=== PATIENT | female | born 1990 | race Caucasian/White ===

== ENCOUNTER → 2016-11-01 | Outpatient (CLI) | payer BC ==
[2016-11-01 10:41] LABS: CH 29.5; CHCM 34.1; HCT 34.7 % (34.0-46.0); HDW 2.45; HGB 11.6 gm/dL (11.4-16.0); MCH 29.1 pg (25.0-35.0); MCHC 33.5 g/dL (31.0-37.0); Mean Platelet Volume 8.2; RBC 3.99 m/uL (3.80-5.40); RDW 13.1 % (11.5-15.5); WBC 8.9 k/uL (3.8-10.6)
[2016-11-01 10:58] LABS: Glucose 76 mg/dL (74-99); Non-African American GFR(MDRD) >60 (>60 ml/min/1.73 sqM)
[2016-11-01 11:29] LABS: Hepatitis B Surface Ag Index 0.06
[2016-11-02 05:34] LABS: Toxoplasma Antibody (IgG) <3.0 IU/mL (<7.2)
[2016-11-02 07:22] LABS: HIV-1/HIV-2 Ab Screen NONREAC (NON REAC)
== END | disposition home or self-care (01) ==
LOC: LABWHC1 10:18
PROVIDERS: ATTEND Obstetrics & Gynecology
DX: Z34.91 Encounter for supervision of normal pregnancy, unspecified, first trimester (principal)
CPT/HCPCS: 36415; 82565; 82947; 85027; 86762; 86777; 86778; 86780; 86850; 86900; 86901; 87340; 87389

== ENCOUNTER → 2017-02-09 | Outpatient (CLI) | payer BC ==
[2017-02-09 08:26] LABS: CH 29.6; CHCM 33.4; HCT 33.9 % (34.0-46.0); HDW 2.71; HGB 11.4 gm/dL (11.4-16.0); MCHC 33.7 g/dL (31.0-37.0); MCV 89.2 fL (80.0-100.0); RBC 3.81 m/uL (3.80-5.40); RDW 13.2 % (11.5-15.5); WBC 15.1 k/uL (3.8-10.6)
== END | disposition home or self-care (01) ==
LOC: LABWHC1 07:04
PROVIDERS: ATTEND Obstetrics & Gynecology
DX: Z34.82 Encounter for supervision of other normal pregnancy, second trimester (principal); Z3A.00 Weeks of gestation of pregnancy not specified
CPT/HCPCS: 36415; 82950; 85027

== ENCOUNTER 2017-05-05 11:15 | Outpatient (CLI) | payer BC ==
[2017-05-05 11:45] VITALS: BP 137/87; PULSE 103; RESP 16; TEMP 98.1
--- NOTE | 2017-05-06 06:06 | P.MSEPDOC ---
Presenting Problems - Arrival Data Date of Arrival on Unit: 05/05/17 Time of Arrival on Unit: 11:10 Mode of Transport: Ambulatory - Complaint OB-Reason for Admission/Chief Complaint: Possible Onset of Labor Medical History - Information : 5 Para: 2 Term: 2 : 0 Abortions: Spontaneous or Elective: 2 Number of Living Children: 2 - Gestational Age Gestational Age by SAKSHI (wks/days): 38 Weeks and 0 Days Review of Systems - Review of Systems Constitutional: No problems Breast: No problems ENT: No problems Cardiovascular: No problems Respiratory: No problems Gastrointestinal: No problems Genitourinary: No problems Musculoskeletal: No problems Neurological: No problems Skin: No problems Vital Signs - Temperature Temperature: 98.1 F Temperature Source: Tympanic - Pulse Right Radial Pulse Rate: 103 Pulse Assessment Method: Automatic Cuff - Respirations Respiratory Rate: 16 Oxygen Delivery Method: Room Air - Blood Pressure Right Arm Blood Pressure: 137/87 Blood Pressure Mean: 103 Blood Pressure Source: Automatic Cuff Medical Screen Scoring (Pre) - Cervical Exam Dilation: 1-3 cm = 1 Membranes: Intact - Uterine Contractions Frequency: > 5 minutes apart = 1 Duration: N/A Intensity: N/A - Maternal Vital Signs Maternal Temperature: N/A Maternal Blood Pressure: N/A Signs of Preeclampsia: N/A Maternal Respirations: N/A - Pain Assessment Pain Scale Used: Numeric (1 - 10) Pain Intensity: 4 Pain Description: Cramping Pain Frequency: Intermittent Pain Behavior: Vocalization Pain Aggravating Factors: Contractions - Total Score Total Score (Pre): 2 - Level of Risk Level of Risk: Low (0-5) Physician Notification (Pre) - Physician Notified Physician Notified Date: 05/05/17 Physician Notified Time: 12:05 Physician/Practitioner Notifed:: katt Spoke With: katt New Order Received: Yes - Notification Comment Comment: discharge home with instructions. bp retake = 124/82. 92 pulse Disposition - Disposition OB Disposition: Discharge to home Discharge Date: 05/05/17 Discharge Time: 12:10 I agree with the RN Medical Screening Exam: Yes Risk & Benefit of care provided described in d/c instruction: Yes Diagnosis: FALSE LABOR AT OR AFTER 37 COMPLETED WEEKS OF GESTATION
== END 2017-05-05 12:15 | disposition home or self-care (01) ==
LOC: FBPOP 11:15
PROVIDERS: ATTEND Obstetrics & Gynecology
DX: O47.1 False labor at or after 37 completed weeks of gestation (principal); Z3A.38 38 weeks gestation of pregnancy
CPT/HCPCS: 59025; 99213

== ENCOUNTER 2017-05-16 05:49 | Inpatient (IN) | payer BC ==
[2017-05-16] MEDS ORDERED: OXYTOCIN 20 UNITS/1000 ML NS 1,000 ML IV SCH ×2 (06:00→18:14)
[2017-05-16] MEDS ORDERED: CARBOPROST TROMETHAMINE 250 MCG/ML 1 ML AMP IM PRN (06:00)
[2017-05-16] MEDS ORDERED: OXYTOCIN 10 UNIT/ML 1 ML VIAL IM PRN (06:00)
[2017-05-16] MEDS ORDERED: METHYLERGONOVINE 0.2 MG/ML 1 ML AMP IM PRN (06:00)
[2017-05-16] MEDS ORDERED: TERBUTALINE 1 MG/ML VIAL SQ PRN (06:00)
[2017-05-16] MEDS ORDERED: LIDOCAINE 1% (PF) 10 MG/ML (30 ML SDV) SQ PRN (06:00)
[2017-05-16 06:20] LABS: Basophils % (A) 0 %; CH 29.2; CHCM 32.9; Eosinophils # (A) 0.1 k/uL (0-0.7); Eosinophils % (A) 1 %; HCT 38.1 % (34.0-46.0); HGB 12.3 gm/dL (11.4-16.0); Luc # (Auto) 0.15; Luc % (Auto) 1; Lymphocytes # (A) 1.6 k/uL (1.0-4.8); Lymphocytes % (A) 14 %; MCH 28.8 pg (25.0-35.0); MCHC 32.3 g/dL (31.0-37.0); MCV 89.2 fL (80.0-100.0); Mean Platelet Volume 9.6; Monocytes # (A) 0.6 k/uL (0-1.0); Monocytes % (A) 5 %; Neutrophils # (A) 8.8 k/uL (1.3-7.7); Neutrophils % (A) 78 %; RBC 4.27 m/uL (3.80-5.40); RDW 14.5 % (11.5-15.5); WBC 11.3 k/uL (3.8-10.6); WBC (Perox) 11.91
[2017-05-16] MEDS: LACTATED RINGERS 1,000 ML IV SCH ×2 (06:21→09:54)
--- NOTE | 2017-05-16 06:30 | P.HPOB ---
History of Present Illness H&P Date: 05/16/17 Chief Complaint: Requested induction of labor. This patient is a pleasant 26-year-old 5 para 2 female estimated date of confinement 05/19/2017 estimated gestational age 39-4/7 weeks gestation who presents to labor and delivery for requested induction of labor. Patient's care has been uncomplicated. Patient is uncomfortable and requests induction at this time. Review of Systems Constitutional: Denies chills, Denies fever Cardiovascular: Denies chest pain, Denies shortness of breath Respiratory: Denies cough Gastrointestinal: Reports heartburn Genitourinary: Reports Menstruation: Reports amenorrhea Past Medical History Past Medical History: No Reported History Additional Past Medical History / Comment(s): previous ectopic History of Any Multi-Drug Resistant Organisms: None Reported Past Surgical History: Adenoidectomy, Tonsillectomy Past Anesthesia/Blood Transfusion Reactions: No Reported Reaction Smoking Status: Never smoker Past Alcohol Use History: None Reported Past Drug Use History: None Reported Medications and Allergies Home Medications Medication Instructions Recorded Confirmed Type Pnv,Calcium 72/Iron/Folic Acid 1 tab PO HS 02/17/16 05/16/17 History [ Plus Tablet] Allergies Allergy/AdvReac Type Severity Reaction Status Date / Time No Known Allergies Allergy Verified 05/16/17 05:59 Exam - Vital Signs Vital signs: Intake and Output 05/15/17 05/15/17 05/16/17 14:59 22:59 06:59 Other: # Voids 1 Weight 69.853 kg Patient Weight 05/16/17 06:59 Weight 69.853 kg - OBG Physical Exam Abdomen: bowel sounds normal, no diffuse tenderness, no bruit present, no guarding noted, no hepatomegaly, no splenomegaly, no mass Vagina: normal moisture, no discharge Cervix: Cervix is 2 cm 50% effaced -2 station. Cervix: no lesion, no discharge Uterus: enlarged (Fundal height is 38 cm.) Results blood work shows she is O positive, rubella immune, RPR nonreactive, HIV is nonreactive, hepatitis B is negative, Glucola was normal, ultrasounds have been normal. Assessment and Plan Assessment: This is a pleasant 26-year-old 5 para 2 female 39-4/7 weeks gestation who presents to labor and delivery for requested elective induction of labor. Patient's had a few elevated blood pressures on admission however is never had any blood pressure problems during the or previously therefore I am going to get some preeclampsia blood work. Has induction of labor and anticipate vaginal delivery. (1) Third trimester Current Visit: Yes Status: Acute Code(s): Z34.93 - ENCNTR FOR SUPRVSN OF NORMAL PREG, UNSP, THIRD TRIMESTER SNOMED Code(s): 71150721 (2) Elective induction of labor planned Current Visit: Yes Status: Acute Code(s): MIJ1820 - SNOMED Code(s): 072243452 (3) Gestational hypertension Current Visit: Yes Status: Acute Code(s): O13.9 - GESTATIONAL HTN W/O SIGNIFICANT PROTEINURIA, UNSP TRIMESTER SNOMED Code(s): 16304657
[2017-05-16 07:06] LABS: ALT 29 U/L (9-52); AST 18 U/L (14-36); Blood Urea Nitrogen 9 mg/dL (7-17); LDH 385 U/L (313-618); Non-African American GFR(MDRD) >60 (>60 ml/min/1.73 sqM); Uric Acid 4.1 mg/dL (3.7-7.4)
[2017-05-16] MEDS ORDERED: fentaNYL (PF) 50 MCG/ML 5 ML AMP ONE (09:34)
[2017-05-16] MEDS ORDERED: SODIUM CHLORIDE 0.9% 100 ML BAG ONE (09:34)
[2017-05-16] MEDS ORDERED: BUPIVACAINE (PF) 0.25% 30 ML VIAL ONE (09:34)
[2017-05-16] MEDS ORDERED: BUPIVACAINE (PF) 0.25% 25 ML, fentaNYL (PF) 200 MCG in SODIUM CHLORIDE 0.9% 71 ML EPIDURAL ONE (09:53)
[2017-05-16 10:15] VITALS: BMI 25.7
--- NOTE | 2017-05-16 18:10 | P.PROBDLV ---
Vaginal Delivery Note - . Vaginal Delivery Note: Normal vaginal delivery viable female Apgars 9 and 9 delivery time is 1744 hrs. Please see dictated H&P for intimate details of this patient's admission. Brief summary is a pleasant 26-year-old 5 para 2 female 39-4/7 weeks gestation admitted to labor and delivery for requested induction of labor. Patient have some elevated blood pressures on admission however preeclampsia evaluation was negative. Patient artificial rupture membranes at 2 cm dilated for clear fluid labor is induced with Pitocin per protocol. Patient progresses does get an epidural for pain control. Patient's labor continues to progress she pushes the head to the perineum. The posterior perineum is supported and we have controlled delivery of 's head over the intact perineum. With gentle downward traction we then have deliver the anterior and posterior shoulder and rest this infant's body. This is a vigorous viable female infant Apgars are 9 and 9 delivery time is 1744 hrs. After delivery of the infant the umbilical cord is doubly clamped and cut appears to be trivascular. Inspection of perineum shows no lacerations and no repairs required. All counts are correct 3. There are no complications.
[2017-05-16] MEDS ORDERED: diphenhydrAMINE 25 MG CAP PO PRN (18:14)
[2017-05-16] MEDS ORDERED: WITCH HAZEL 1 EACH MED..PAD TOPICAL PRN (18:14)
[2017-05-16] MEDS ORDERED: Acetaminophen-Codeine 300-30mg TAB PO PRN (18:14)
[2017-05-16] MEDS ORDERED: ZOLPIDEM 5 MG TAB PO PRN (18:14)
[2017-05-16] MEDS ORDERED: BISACODYL 10 MG SUPP RECTAL PRN (18:14)
[2017-05-16] MEDS ORDERED: HYDROCORTISONE 2.5% RECTAL CREAM 30 GM TUBE RECTAL PRN (18:14)
[2017-05-16] MEDS ORDERED: SIMETHICONE 80 MG CHEWABLE PO PRN (18:14)
[2017-05-16] MEDS ORDERED: ACETAMINOPHEN TAB 325 MG TAB PO PRN (18:14)
[2017-05-16] MEDS ORDERED: LANOLIN CREAM 5 GM TUBE TOPICAL PRN (18:14)
[2017-05-16] MEDS ORDERED: BENZOCAINE/MENTHOL SPRAY 1 GM/SPRAY AEROSOL TOPICAL PRN (18:14)
[2017-05-16] MEDS ORDERED: diphenhydrAMINE 50 MG/ML 1 ML VIAL IVP PRN (18:14)
[2017-05-16] MEDS: SENNOSIDES-DOCUSATE SODIUM 1 EACH TAB PO SCH (20:07)
[2017-05-16] MEDS ORDERED: METHYLERGONOVINE 0.2 MG/ML 1 ML AMP IM ONE (20:31)
[2017-05-16 21:18] LABS: Glucose,Whole Blood 106 mg/dL (75-99)
[2017-05-16 21:23] LABS: Basophils % (A) 0 %; CH 28.7; CHCM 31.8; Eosinophils % (A) 0 %; HCT 25.8 % (34.0-46.0); HDW 2.42; HGB 8.3 gm/dL (11.4-16.0); Luc # (Auto) 0.11; Luc % (Auto) 1; Lymphocytes % (A) 6 %; MCH 29.3 pg (25.0-35.0); MCHC 32.2 g/dL (31.0-37.0); MCV 90.9 fL (80.0-100.0); Mean Platelet Volume 10.8; Monocytes # (A) 0.7 k/uL (0-1.0); Monocytes % (A) 4 %; Neutrophils # (A) 14.6 k/uL (1.3-7.7); Neutrophils % (A) 88 %; RBC 2.84 m/uL (3.80-5.40); RDW 14.5 % (11.5-15.5); WBC 16.5 k/uL (3.8-10.6); WBC (Perox) 17.37
[2017-05-16 21:38] LABS: ALT 26 U/L (9-52); AST 19 U/L (14-36); Alkaline Phosphatase 83 U/L (38-126); Anion Gap 4 mmol/L; Blood Urea Nitrogen 8 mg/dL (7-17); Calcium 7.8 mg/dL (8.4-10.2); Carbon Dioxide 22 mmol/L (22-30); Chloride 106 mmol/L (98-107); Glucose 125 mg/dL (74-99); Magnesium 1.1 mg/dL (1.6-2.3); Non-African American GFR(MDRD) >60 (>60 ml/min/1.73 sqM); Potassium 3.8 mmol/L (3.5-5.1); Sodium 132 mmol/L (137-145); Total Bilirubin 0.3 mg/dL (0.2-1.3); Total Protein 4.1 g/dL (6.3-8.2)
--- NOTE | 2017-05-16 22:10 | P.PN ---
Progress Note - Text Progress Note Date: 05/16/17 This is a progress note on Ms. Valeri Rausch. Was called to see Valeri in regards to bleeding with hypotension and tachycardia. She is status post vaginal delivery earlier this evening began having odd feeling and was noted to have fundus above the umbilicus. Passing large clots. Patient had many clots expressed but continued to have bleeding. The team was called and so was Dr. Lynn. Dr. Lynn did come in and I was called as well. Examination showed the uterus to be now firm I did express approximately tennis ball-sized dark clot. Estimated blood loss is close to 4000 mL based on weighing the pads. I immediately gave the patient some Methergine and uterine massage bleeding subsided. Stat CBC shows a hemoglobin be 8.3 and is more realistically in the 6 range. Patient's vital signs now stabilized and pulses just about 110 blood pressure 120/70. Plan is to continue oral Methergine and I 'm going to transfuse her 2 units of blood. Tinea close observation. Bleeding appears to be completely from uterine atony.
[2017-05-16] MEDS: IBUPROFEN 600 MG TAB PO PRN (22:52)
[2017-05-17] MEDS: Acetaminophen-Codeine 300-30mg TAB PO PRN ×3 (02:49→20:22)
[2017-05-17] MEDS ORDERED: METHYLERGONOVINE 0.2 MG TAB PO SCH (04:00)
[2017-05-17 05:36] LABS: Basophils % (A) 0 %; CH 28.7; CHCM 32.8; Eosinophils % (A) 0 %; HCT 32.1 % (34.0-46.0); HDW 2.62; HGB 10.7 gm/dL (11.4-16.0); Luc # (Auto) 0.15; Luc % (Auto) 1; Lymphocytes # (A) 1.3 k/uL (1.0-4.8); Lymphocytes % (A) 7 %; MCH 29.4 pg (25.0-35.0); MCHC 33.4 g/dL (31.0-37.0); Mean Platelet Volume 9.9; Monocytes # (A) 0.8 k/uL (0-1.0); Monocytes % (A) 4 %; Neutrophils # (A) 16.5 k/uL (1.3-7.7); Neutrophils % (A) 88 %; RBC 3.64 m/uL (3.80-5.40); RDW 14.4 % (11.5-15.5); WBC 18.9 k/uL (3.8-10.6); WBC (Perox) 20.32
--- NOTE | 2017-05-17 06:00 | P.PNOBGVD ---
Subjective - Subjective Patient reports: Reports appetite normal, Reports voiding normally, Reports pain well controlled, Reports ambulating normally : doing well Objective - Latest Vital Signs Latest vital signs: Vital Signs Temp Pulse Pulse Resp BP BP Pulse Ox 05/17/17 04:30 140/91 05/17/17 04:16 140/95 05/17/17 04:15 97.9 F 81 16 138/94 05/17/17 02:00 98.5 F 86 16 122/65 05/17/17 01:28 98.5 F 98 16 133/71 98 05/17/17 00:00 98.7 F 97 18 124/78 100 05/16/17 23:46 98.6 F 103 H 18 125/75 97 05/16/17 22:39 97.7 F 103 H 18 118/76 98 05/16/17 22:27 97.6 F 97 18 113/75 103 H 05/16/17 22:19 97.7 F 107 H 18 122/77 100 05/16/17 22:08 97.8 F 99 18 120/80 100 05/16/17 22:01 100 18 100 05/16/17 22:00 97.3 F L 84 18 120/80 100 05/16/17 21:59 97.3 F L 84 18 129/80 100 05/16/17 21:50 97.3 F L 90 18 125/75 100 05/16/17 21:47 97.3 F L 89 18 125/75 100 05/16/17 21:40 97 F L 122 H 18 117/63 05/16/17 21:32 85/54 05/16/17 21:28 69/40 05/16/17 21:23 78/47 05/16/17 21:01 113 H 18 115/70 100 05/16/17 20:55 97 05/16/17 20:35 105 H 18 103/62 100 05/16/17 20:19 97.6 F 79 18 100/57 97 05/16/17 19:31 98 F 101 H 18 110/80 96 05/16/17 19:15 100 20 100 05/16/17 19:00 117 H 16 143/92 05/16/17 18:45 115 H 16 136/83 05/16/17 18:30 92 16 154/82 05/16/17 18:15 103 H 16 148/88 05/16/17 18:00 104 H 16 138/68 05/16/17 07:00 97.3 F L 87 16 146/91 Intake and Output 05/16/17 05/16/17 05/17/17 14:59 22:59 06:59 Intake Total 4627 0 Output Total 300 880 Balance -300 3747 0 Intake: IV 2613 Lactated Ringers 1,000 ml 2253 @ 125 mls/hr IV .Q8H [facility] Rx#:[id number] Oxytocin 20 Units/1000 ml 360 Ns 1,000 ml @ 1 MILLIUNIT/MIN 3 mls/hr IV .Q24H [facility] Rx#:[id number] Intake, IV Titration 1204 Amount Oxytocin 20 Units/1000 ml 1204 Ns 1,000 ml @ Per Protocol IV .Q0M [facility] Rx#: [id number] Blood Product 810 0 Rc As-3 Unit 310 [id number] Rc As-3 Unit 0 0 [id number] Output: Urine 300 880 Straight 440 Other: # Voids 1 Weight 70.307 kg Patient Weight 05/17/17 06:59 Weight 70.307 kg - Exam Lungs: bilateral: normal Chest: Normal S1, Normal S2 Extremities: Present: normal Abdomen: Present: normal appearance, soft Uterus: Present: normal, firm - Labs Labs: Abnormal Lab Results - Last 24 Hours (Table) 05/16/17 05/16/17 05/16/17 Range/Units 06:00 06:00 20:58 WBC 11.3 H (3.8-10.6) k/uL RBC (3.80-5.40) m/uL Hgb (11.4-16.0) gm/dL Hct (34.0-46.0) % Neutrophils # 8.8 H (1.3-7.7) k/uL Sodium (137-145) mmol/L Glucose (74-99) mg/dL POC Glucose (mg/dL) 106 H (75-99) mg/dL Calcium (8.4-10.2) mg/dL Magnesium (1.6-2.3) mg/dL Total Protein (6.3-8.2) g/dL Albumin (3.5-5.0) g/dL Crossmatch See Detail 11/05/16/17 05/17/17 Range/Units 21:05 21:12 05:20 WBC 16.5 H 18.9 H (3.8-10.6) k/uL RBC 2.84 L 3.64 L (3.80-5.40) m/uL Hgb 8.3 L D 10.7 L (11.4-16.0) gm/dL Hct 25.8 L 32.1 L (34.0-46.0) % Neutrophils # 14.6 H 16.5 H (1.3-7.7) k/uL Sodium 132 L (137-145) mmol/L Glucose 125 H (74-99) mg/dL POC Glucose (mg/dL) (75-99) mg/dL Calcium 7.8 L (8.4-10.2) mg/dL Magnesium 1.1 L (1.6-2.3) mg/dL Total Protein 4.1 L (6.3-8.2) g/dL Albumin 2.0 L (3.5-5.0) g/dL Crossmatch Assessment and Plan Assessment: day #1. Please see previous progress note, patient had an episode of atony a hour or 2 after delivery that required 2 units of packed red blood cells. Patient's bleeding overnight has been normal. Hemoglobin this morning is 10.7. Vital signs are stable. Blood pressures returned was at the time of delivery. Plan today is to discontinue her IV fluids, encouraged patient ambulate. Her atony appears to have resolved. This point we'll continue routine care and most likely discharge home tomorrow. (1) Third trimester Current Visit: Yes Status: Acute Code(s): Z34.93 - ENCNTR FOR SUPRVSN OF NORMAL PREG, UNSP, THIRD TRIMESTER SNOMED Code(s): 25588454 (2) Elective induction of labor planned Current Visit: Yes Status: Acute Code(s): FSY7675 - SNOMED Code(s): 944610764 (3) Gestational hypertension Current Visit: Yes Status: Acute Code(s): O13.9 - GESTATIONAL HTN W/O SIGNIFICANT PROTEINURIA, UNSP TRIMESTER SNOMED Code(s): 00549240
[2017-05-17] MEDS: SENNOSIDES-DOCUSATE SODIUM 1 EACH TAB PO SCH ×2 (08:21→20:22)
[2017-05-17] MEDS: IBUPROFEN 600 MG TAB PO PRN (14:09)
[2017-05-18] MEDS: Acetaminophen-Codeine 300-30mg TAB PO PRN ×2 (02:30→05:52)
--- NOTE | 2017-05-18 06:23 | P.PNOBGVD ---
Subjective - Subjective Patient reports: Reports appetite normal, Reports voiding normally, Reports pain well controlled, Reports ambulating normally [place]: doing well Objective - Latest Vital Signs Latest vital signs: Vital Signs Temp Pulse Pulse Resp BP Pulse Ox 05/18/17 04:30 102 H 15 131/81 05/18/17 00:00 97.9 F 95 16 131/79 98 05/17/17 20:14 97.9 F 103 H 16 131/79 05/17/17 16:00 98.1 F 108 H 20 136/85 97 05/17/17 12:00 98.3 F 94 20 120/71 98 05/17/17 08:00 98 F 92 20 134/88 97 - Exam Lungs: bilateral: normal Chest: Normal S1, Normal S2 Extremities: Present: normal Abdomen: Present: normal appearance, soft Uterus: Present: normal, firm Assessment and Plan Assessment: day #2. Patient is resting without complaints. She's had normal lochia. Vital signs are stable she is afebrile. My impression is she is doing very well and no further episodes of atony. Plan is to discharge home today continue routine care. (1) Third trimester Current Visit: Yes Status: Acute Code(s): Z34.93 - ENCNTR FOR SUPRVSN OF NORMAL PREG, UNSP, THIRD TRIMESTER SNOMED Code(s): 80729294 (2) Elective induction of labor planned Current Visit: Yes Status: Acute Code(s): UXT7232 - SNOMED Code(s): 097421887 (3) Gestational hypertension Current Visit: Yes Status: Acute Code(s): O13.9 - GESTATIONAL HTN W/O SIGNIFICANT PROTEINURIA, UNSP TRIMESTER SNOMED Code(s): 53774689
--- NOTE | 2017-05-18 06:27 | P.DS ---
Providers Date of admission: 05/16/17 05:49 Expected date of discharge: 05/18/17 Attending physician: Moo Pabon Primary care physician: Stated None - Discharge Diagnosis(es) (1) Third trimester Current Visit: Yes Status: Acute (2) Elective induction of labor planned Current Visit: Yes Status: Acute (3) Gestational hypertension Current Visit: Yes Status: Acute Hospital Course: Please see dictated H&P for intimate details of this patient's admission. In brief summary this is a pleasant 26-year-old 5 para 2 female who is admitted to the hospital for elective induction of labor. Patient was on have an uncomplicated vaginal delivery, however approximately 2 hours patient developed uterine atony that is significant enough to require 2 units of packed red blood cells. This does resolve with Methergine and uterine massage. Thereafter patient does well. By day #2 patient's felt be stable for discharge home follow up with me in the office. Procedures: Induction of labor and normal vaginal delivery. Patient Condition at Discharge: Good Plan - Discharge Summary New Discharge Prescriptions: New Acetaminophen-Codeine 300-30mg [Tylenol w/codeine #3] 1 - 2 each PO Q4HR PRN #30 tab PRN Reason: Mild Pain exceeding Tylenol Ibuprofen [Motrin] 600 mg PO Q6HR PRN #40 tab PRN Reason: Mild Pain Or Fever >= 100.5 No Action Pnv,Calcium 72/Iron/Folic Acid [ Plus Tablet] 1 tab PO HS Discharge Medication List Pnv,Calcium 72/Iron/Folic Acid [ Plus Tablet] 1 tab PO HS 02/17/16 [ History] Acetaminophen-Codeine 300-30mg [Tylenol w/codeine #3] 1 - 2 each PO Q4HR PRN # 30 tab 05/18/17 [Rx] Ibuprofen [Motrin] 600 mg PO Q6HR PRN #40 tab 05/18/17 [Rx] Follow up Appointment(s)/Referral(s): Moo Pabon MD [STAFF PHYSICIAN] - 06/28/17 10:45 am Patient Instructions/Handouts: Vaginal Delivery (DC) Activity/Diet/Wound Care/Special Instructions: No intercourse or anything per vagina for 6 weeks. Please call if any fever, chills, severe vaginal bleeding, and/or abdominal pain. Discharge Disposition: HOME SELF-CARE
[2017-05-18] MEDS: SENNOSIDES-DOCUSATE SODIUM 1 EACH TAB PO SCH (09:10)
[2017-05-18 09:47] VITALS: BP 113/63; PULSE 95; RESP 16; TEMP 98.1
== END 2017-05-18 12:20 | disposition home or self-care (01) | DRG 774 ==
LOC: 4FBP 05:49
PROVIDERS: ADMIT Obstetrics & Gynecology; ATTEND Obstetrics & Gynecology
PROC: 3E0R3BZ Introduction of Anesthetic Agent into Spinal Canal, Percutaneous Approach (ICD-10-PCS; principal; 2017-05-16)
PROC: 30233N1 Transfusion of Nonautologous Red Blood Cells into Peripheral Vein, Percutaneous Approach (ICD-10-PCS; principal; 2017-05-16)
PROC: 10907ZC Drainage of Amniotic Fluid, Therapeutic from Products of Conception, Via Natural or Artificial Opening (ICD-10-PCS; principal; 2017-05-16)
PROC: 10E0XZZ Delivery of Products of Conception, External Approach (ICD-10-PCS; principal; 2017-05-16)
PROC: 3E033VJ Introduction of Other Hormone into Peripheral Vein, Percutaneous Approach (ICD-10-PCS; principal; 2017-05-16)
PROC: 00HU33Z Insertion of Infusion Device into Spinal Canal, Percutaneous Approach (ICD-10-PCS; principal; 2017-05-16)
DX: O13.4 Gestational [pregnancy-induced] hypertension without significant proteinuria, complicating childbirth (principal); O72.1 Other immediate postpartum hemorrhage; Z37.0 Single live birth; Z3A.39 39 weeks gestation of pregnancy; Z87.59 Personal history of other complications of pregnancy, childbirth and the puerperium
CPT/HCPCS: 80053; 82565; 83615; 83735; 84100; 84450; 84460; 84520; 84550; 85025; 86850; 86900; 86901; 86920; 88307

== ENCOUNTER → 2020-08-01 | Outpatient (CLI) | payer BC ==
[2020-08-01 10:40] LABS: Basophils % (A) 1 %; Eosinophils # (A) 0.1 k/uL (0-0.7); Eosinophils % (A) 2 %; HCT 39.7 % (34.0-46.0); HGB 13.5 gm/dL (11.4-16.0); Lymphocytes # (A) 1.2 k/uL (1.0-4.8); Lymphocytes % (A) 20 %; MCH 29.6 pg (25.0-35.0); MCHC 33.9 g/dL (31.0-37.0); MCV 87.3 fL (80.0-100.0); Mean Platelet Volume 8.7; Monocytes # (A) 0.4 k/uL (0-1.0); Monocytes % (A) 6 %; Neutrophils # (A) 4.3 k/uL (1.3-7.7); Neutrophils % (A) 70 %; Platelet Count 201 k/uL (150-450); RBC 4.55 m/uL (3.80-5.40); RDW 12.3 % (11.5-15.5); WBC 6.1 k/uL (3.8-10.6)
== END | disposition home or self-care (01) ==
LOC: LABPAT 09:06
PROVIDERS: ATTEND Obstetrics & Gynecology
DX: Z01.818 Encounter for other preprocedural examination (principal)
CPT/HCPCS: 36415; 85025

== ENCOUNTER 2020-08-05 06:22 | Day surgery (SDC) | payer BC ==
[2020-08-01 08:41] VITALS: BMI 22.1
--- NOTE | 2020-08-04 08:04 | P.HPOB ---
History of Present Illness H&P Date: 08/04/20 Chief Complaint: Family planning, desires sterilization This patient is a pleasant 29-year-old 5 para 3 female who presented to my office requesting permanent sterilization. Patient has had an IUD in the past, she tried oral contraceptives, and also was on Depo-Provera and at this time is requesting permanent sterilization. She did discuss vasectomy with her but he has declined to do this. Patient is done having children and wishes to have a permanent form of control. Past Medical History Past Medical History: No Reported History Additional Past Medical History / Comment(s): Hx Ectopic . History of Any Multi-Drug Resistant Organisms: None Reported Past Surgical History: Adenoidectomy, Tonsillectomy Past Anesthesia/Blood Transfusion Reactions: No Reported Reaction Past Psychological History: No Psychological Hx Reported Smoking Status: Never smoker Past Alcohol Use History: None Reported, Rare Past Drug Use History: None Reported - Past Family History Mother Family Medical History: No Reported History Medications and Allergies Home Medications Medication Instructions Recorded Confirmed Type Multivitamins, Thera [Multivitamin 1 tab PO DAILY 08/01/20 08/01/20 History (formulary)] Allergies Allergy/AdvReac Type Severity Reaction Status Date / Time No Known Allergies Allergy Verified 08/01/20 08:33 Exam - OBG Physical Exam Abdomen: bowel sounds normal, no diffuse tenderness, no bruit present, no guarding noted, no hepatomegaly, no splenomegaly, no mass Vulva: both: normal Vagina: normal moisture, no discharge Cervix: no lesion, no discharge Uterus: normal size Assessment and Plan Assessment: This is a pleasant 30-year-old 5 para 3 female requesting permanent sterilization by laparoscopic tubal cauterization. Patient I have discussed the surgery and the fact that is considered permanent, however there is a failure rate of approximately less than 5 per thousand procedures done. Patient also understands if she does become she has a 50% chance of a tubal or ectopic that were require further surgery. Patient understands that this surgery and apparently has risks including risks of infection, bleeding, possible injury to bowel, bladder, vessels, and/or other organs. She also understands this procedure is considered elective and alternatives exist. All the patient's questions are answered written consent is obtained. (1) Family planning Status: Acute Code(s): Z30.09 - ENCOUNTER FOR OTH GENERAL CNSL AND ADVICE ON CONTRACEPTION SNOMED Code(s): 866082545
[~2020-08-05 06:22] MED LIST: DEXAMETHASONE SOD PHOSPHATE 4 MG/ML 1 ML VIAL IV ONE; LACTATED RINGERS 1,000 ML IV SCH; MIDAZOLAM 2 MG/2 ML VIAL IV PRN; ONDANSETRON 4 MG/2 ML VIAL IVP ONE; Pre Op ABX Message 1 EACH MISC MISCELLANE ONE; SCOPOLAMINE 1.5MG/72HR PATCH TRANSDERM ONE
[2020-08-05] MEDS ORDERED: HYDROmorphone 0.5 MG/0.5 ML SYRINGE IVP PRN (07:00)
[2020-08-05] MEDS ORDERED: GLYCOPYRROLATE 0.2 MG/ML 2 ML VIAL ONE (07:21)
[2020-08-05] MEDS ORDERED: NEOSTIGMINE 1 MG/ML 10 ML VIAL ONE (07:21)
[2020-08-05] MEDS ORDERED: MIDAZOLAM 2 MG/2 ML VIAL ONE (07:21)
[2020-08-05] MEDS ORDERED: LIDOCAINE 1% INJ 10MG/ML (20 ML MDV) ONE (07:21)
[2020-08-05] MEDS ORDERED: ROCURONIUM 10 MG/ML (10 ML VIAL) IV ONE (07:21)
[2020-08-05] MEDS ORDERED: fentaNYL (PF) 50 MCG/ML 2 ML AMP ONE (07:21)
[2020-08-05] MEDS ORDERED: KETOROLAC 15 MG/ML 1 ML VIAL ONE (07:21)
[2020-08-05] MEDS ORDERED: PROPOFOL 10 MG/ML 20 ML VIAL IV ONE (07:21)
[2020-08-05] MEDS ORDERED: BUPIVACAINE (PF) 0.5% 30 ML VIAL SQ ONE (07:58)
--- NOTE | 2020-08-05 08:12 | P.OP ---
Date of Procedure: 08/05/20 Preoperative Diagnosis: Multi parity desires permanent sterilization Postoperative Diagnosis: Same Procedure(s) Performed: Laproscopic Bilateral fallopian tube cauterization Anesthesia: BRIAA Surgeon: Moo Pabon Estimated Blood Loss (ml): 5 Urine output (ml): 75 Pathology: none sent Condition: stable Disposition: PACU Indications for Procedure: Please see dictated H&P for intimate details of this patient's admission. Brief summary this is a pleasant 30-year-old multiparous patient who has requested tubal sterilization for control. Patient I have discussed the surgery in detail including the fact that is considered permanent, however there is a failure rate of approximately less than 5 per thousand procedures done. She also understands if she does become she is a 50% chance of tubal or an ectopic . Patient is thin laparoscopic surgery and inferiorly has risks including risks of infection, bleeding, possible injury to bowel, bladder, vessels, and/or other organs. All the patient's questions are answered written consent is obtained. Operative Findings: Patient had a normal-appearing pelvis. Patient's upper abdomen grossly appeared normal. Description of Procedure: This patient is taken to the operating room where she is laid in the supine position. She subsequent undergoes general endotracheal anesthesia without incident. With an adequate level of anesthesia, she's placed in dorsal lithotomy position. She has a vaginal perineal prep and drape. First good on below placed a speculum in the vagina grabbed the anterior lip the cervix with an Allis clamp. The endocervix is then cannulated with a large acorn cannula. Latter is then drained for 75 mL of clear urine and the catheter is left in place. Then changed gloves go up above. I make a 10 mm infraumbilical incision. Using a 10 mm bladed lists optical trochars placed directly into the peritoneal cavity. Pneumoperitoneum was created to 12 mm of carbon dioxide gas. With this done approximately 2 fingerbreadths above the symphysis pubis make a 5 mm incision through this 5 mm trochars placed under direct visualization area and using blunt probe I manipulate the uterus tubes and ovaries all appear normal. Using bipolar cautery, I then grabbed approximate 4 cm from the cornual insertion a left fallopian tube and a 2 cm segment tube is completely cauterized as demarcated by the volt meter. Similar technique is done on the right side with similar results. With this done the procedure is ended. The lower trochars removed good hemostasis is noted. The pneumoperitoneum was reduced and the upper trochars removed. Incisions are then closed using a 4-0 Vicryl. Steri-Strips and sterile dressing applied. I then good on below remove the Allis clamp and acorn cannula. All counts correct 3. There are no complications. Patient is willing from anesthesia and taken recovery room satisfactory condition.
[2020-08-05 08:42] VITALS: TEMP 96.9
[2020-08-05 08:43] VITALS: RESP 16
[2020-08-05] MEDS ORDERED: Acetaminophen-Codeine 300-30mg TAB PO ONE (09:25)
[2020-08-05] MEDS ORDERED: Acetaminophen-Codeine 300-30mg TAB ONE (09:28)
[2020-08-05 09:31] VITALS: BP 113/72; PULSE 70
== END 2020-08-05 09:51 | disposition home or self-care (01) ==
LOC: OR 06:22
PROVIDERS: ATTEND Obstetrics & Gynecology
DX: Z30.2 Encounter for sterilization (principal); Z90.89 Acquired absence of other organs
CPT/HCPCS: 81025; 58670; J2250; J1100; J2710; J2405; J2001; J3010; J1885; J2704